=== PATIENT | born 1995 | race Two or more races ===

== ENCOUNTER 2019-04-26 05:32 | Emergency (ER) | payer OTHER ==
[~2019-04-26] VITALS: Ht 157.5 cm; Wt 52.6 kg
[2019-04-26 05:45] VITALS: BP 108/75
--- NOTE | 2019-04-26 05:45 | NUR ---
ED Nurse Note: Patient walked in to ER due to sorethroat and cough x 2 wks but progressively worsening with vomiting x 3 days. No SOB. Breathing even and unlabored. 99% on RA. Afebrile. VSS.
--- NOTE | 2019-04-26 06:00 | Emergency Room Report ---
History of Present Illness General Chief Complaint: Flu Like Symptoms Source: Patient Present Illness HPI Is a 23-year-old male who presents with chief complaint of cough and sore throat. The coughing is been ongoing for about 2 to 3 weeks. Cough is nonproductive nature. Throat is sore usually in the morning. He went to the [facility] center and had multiple works done. CBC is unremarkable. Chemistries unremarkable. Hepatitis panel is negative. RPR negative. HIV negative. GC chlamydia is negative. Only abnormal finding is a very low vitamin D level. Patient said that he does not like to go in the sun. Allergies: Coded Allergies: No Known Allergies (Unverified , 04/26/19) Patient History Past Medical History: see triage record, old chart reviewed Past Surgical History: none Pertinent Family History: none Social History: Denies: smoking Now: No Immunizations: other Reviewed Nursing Documentation: PMH: Agreed; PSxH: Agreed Nursing Documentation-PMH Past Medical History: No Stated History Review of Systems Eye: Denies: eye pain, blurred vision ENT: Reports: throat pain; Denies: ear pain, nose congestion, throat swelling Respiratory: Reports: cough; Denies: shortness of breath Cardiovascular: Denies: chest pain, palpitations Gastrointestinal: Denies: abdominal pain, diarrhea, nausea, vomiting Musculoskeletal: Denies: back pain, joint pain Skin: Denies: rash Neurological: Denies: headache, numbness Endocrine: Denies: increased thirst, increased urine Hematologic/Lymphatic: Denies: easy bruising All Other Systems: negative except mentioned in HPI Physical Exam Vital Signs Date Time Temp Pulse Resp B/P (MAP) Pulse Ox O2 Delivery O2 Flow Rate FiO2 04/26/19 05:39 98.1 106 18 108/75 (86) 96 Room Air Vitals unremarkable Sp02 EP Interpretation: reviewed, normal General Appearance: well appearing, no apparent distress, alert Head: normocephalic, atraumatic Eyes: bilateral eye PERRL, bilateral eye EOMI ENT: hearing grossly normal, normal pharynx Neck: full range of motion, supple, no meningismus Respiratory: chest non-tender, lungs clear, normal breath sounds Cardiovascular #1: regular rate, rhythm, no murmur Gastrointestinal: normal bowel sounds, non tender, no mass, no organomegaly, no bruit, non-distended Musculoskeletal: back normal, gait/station normal, normal range of motion Psychiatric: mood/affect normal Medical Decision Making Diagnostic Impression: Primary Impression: Cough in adult Additional Impression: Vitamin D deficiency ER Course Patient presents with cough for 3 weeks. X-rays unremarkable. This may be an atypical pneumonia. Which is been ongoing for 3 weeks, we will put him on antibiotics. Vitamin D level is very low. Will dc home. Chest X-Ray Diagnostic Results Chest X-Ray Diagnostic Results : Chest X-Ray Ordered: Yes # of Views/Limited/Complete: 1 View Indication: Other - cough Interpretation: no consolidation, no effusion, no pneumothorax, no acute cardiopulmonary disease Impression: No acute disease Electronically Signed by: Gilberto Mann MD Last Vital Signs Date Time Temp Pulse Resp B/P (MAP) Pulse Ox O2 Delivery O2 Flow Rate FiO2 04/26/19 05:45 98.1 89 18 108/75 96 Room Air Status: improved Disposition: HOME, SELF-CARE Condition: Stable Scripts Cholecalciferol (Vitamin D3) (VITAMIN D) 10,000 Unit Capsule [id number] UNIT PO DAILY, #100 CAP Prov: Gilberto Mann MD 04/26/19 Azithromycin* (ZITHROMAX*) 250 Mg Tablet 250 MG ORAL DAILY, #6 TAB 0 Refills Take two tables once daily for 1 day, then one tablet once daily for 4 days. Prov: Gilberto Mann MD 04/26/19 Additional Instructions: Follow-up with your doctor in 7 days. Return if symptoms worsen. Gilberto Mann MD Apr 26, 2019 06:00
--- NOTE | 2019-04-26 06:00 | NUR ---
ED Nurse Note: Xray at bedside.
[2019-04-26] MEDS ORDERED: ZITHROMAX250 MG ORAL (06:25)
[2019-04-26] MEDS ORDERED: VITAMIN D10000 UNIT PO (06:28)
[2019-04-26 06:32] VITALS: BP 108/75
--- NOTE | 2019-04-26 06:32 | NUR ---
ED Nurse Note: Pt cleared by ERMD for discharge. DC instructions/prescription was given and explained to pt and verbalized understanding of teachings. All medical devices such as ID band removed. Pt is AAO x4, ambulatory and left with all personal belongings.
--- NOTE | 2019-04-26 14:51 | Diagnostic Imaging Report ---
Indication: Shortness of breath, cough for 2 weeks Technique: One view of the chest Comparison: none Findings: Lungs and pleural spaces are clear. Heart size is normal. Impression: No acute process
== END 2019-04-26 06:35 | disposition home or self-care (01) ==
LOC: EMR 06:30
DX: R05 Cough (principal); E55.9 Vitamin D deficiency, unspecified
CPT/HCPCS: 71045; Z7502; 99283